=== PATIENT | female | born 2000 | race Caucasian/White ===

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

== ENCOUNTER 2019-02-06 16:05 | Emergency (ER) | payer MEDICAID ==
[2019-02-06 16:10] VITALS: BP 132/71
[2019-02-06] MEDS ORDERED: DOXYCYCLINE 100 MG TABLET PO STA (16:52)
--- NOTE | 2019-02-06 16:55 | ED Physician Documentation ---
PD HPI SKIN - Stated complaint Stated Complaint: BELLYBUTTON DRAINAGE - Chief complaint Chief Complaint: Wound - History obtained from History obtained from: Patient - History of Present Illness Timing - details: Gradual onset Location: Other (Belly button.) Similar symptoms before: Diagnosis (History of umbilical cyst, drained when seen in the emergency department 7 months ago.) - Additional information Additional information: The patient is a 18-year-old female who presents with recurrent drainage from a cyst in her umbilicus. She has noticed discomfort in the umbilicus the past several days. She was seen at [facility] emergency department last night and was prescribed doxycycline and hydrocodone. This morning she noticed drainage from the site, so presents to the emergency department here. She has not yet filled the prescription that she received last night at [facility]. Review of her medical records reveals that she was seen here 7 months ago with a similar presentation. On examination she had a tender cyst in the umbilicus (she has an innie). She underwent CT scan at that time, revealing no evidence of urachal cyst. Culture obtained at that time grew 3+ mixed skin gissell. Review of Systems Constitutional: denies: Fever Nose: denies: Congestion Respiratory: denies: Cough GI: reports: Other (Pain at the umbilicus.). denies: Nausea, Vomiting : denies: Dysuria Musculoskeletal: denies: Back pain PD PAST MEDICAL HISTORY - Past Medical History Endocrine/Autoimmune: None - Past Surgical History Past Surgical History: Yes - Present Medications Home Medications: Ambulatory Orders Medication Instructions Recorded Confirmed Amox/Clav 875/125 [Augmentin] 1 each PO Q12H #20 tablet 07/05/18 - Allergies Allergies/Adverse Reactions: Allergies Allergy/AdvReac Type Severity Reaction Status Date / Time No Known Drug Allergies Allergy Verified 02/06/19 16:11 - Social History Does the pt smoke?: Yes Smoking Status: Current every day smoker Does the pt drink ETOH?: Yes Does the pt have substance abuse?: No - Immunizations Immunizations are current?: Yes PD ED PE NORMAL - Vitals Vital signs reviewed: Yes (normal) - General General: Alert and oriented X 3, Well developed/nourished - HEENT HEENT: Atraumatic - Respiratory Respiratory: No respiratory distress - Abdomen Abdomen: Soft, Non tender, Other (There is tiny erythematous area at the base of her umbilicus, which is hidden deep within a skin fold. It is tender to palpation, without evidence of cyst formation at this time.) - Neuro Neuro: Alert and oriented X 3, No motor deficit, Normal speech Results - Vitals Vitals: Oxygen O2 Source Room air PD MEDICAL DECISION MAKING - ED course Complexity details: reviewed old records, considered differential, d/w patient, d/w family ED course: The patient's presentation is most consistent with cellulitis of the umbilicus. There is no clinical evidence of cyst at this time. There is no clinical indication for repeat imaging studies, or further diagnostic workup at this time. Treatment in the emergency department included administration of doxycycline 100 mg orally. I discussed with the patient diagnosis, the importance of filling the prescription that was written for her last night, outpatient follow-up, as well as potentially worrisome signs or symptoms that should prompt reevaluation in the emergency department. Departure - Departure Disposition: 01 Home, Self Care Clinical Impression: Cellulitis of umbilicus Condition: Stable Instructions: ED Staph Infec Abx Tx Only Follow-Up: [facility] [Provider Group] Comments: Take doxycycline twice daily as previously prescribed. You can use ibuprofen, up to 800 mg 3 times daily if needed for pain. Clean the umbilical area with warm soapy water daily, and apply antibiotic ointment. You can put gauze pad in the pocket of the umbilical fold. Follow-up with primary physician within 1 to 2 weeks. Call to schedule appointment. Return to the emergency department if you develop increasing redness, swelling, pain, or otherwise worsening symptoms. Discharge Date/Time: 02/06/19 17:01
== END 2019-02-06 17:01 | disposition home or self-care (01) ==
LOC: ED 16:05
DX: L03.316 Cellulitis of umbilicus (principal); F17.200 Nicotine dependence, unspecified, uncomplicated
CPT/HCPCS: 99282; 99283; A9270